=== PATIENT | female | born 1955 | race Caucasian/White ===

== ENCOUNTER 2021-09-25 13:47 | Outpatient (CLI) | payer MEDICARE, OTHER | END 2021-09-25 23:59 | disposition home or self-care (01) | LOC: CARD DIAG 13:47 | PROVIDERS: ATTEND Nurse Practitioner | DX: I08.1 Rheumatic disorders of both mitral and tricuspid valves (principal) | CPT/HCPCS: 93306 ==

== ENCOUNTER → 2023-01-12 | Outpatient (CLI) | payer MEDICARE, OTHER | END | disposition home or self-care (01) | LOC: RAD 12:42 | PROVIDERS: ATTEND Ophthalmology | DX: H35.371 Puckering of macula, right eye (principal); I49.1 Atrial premature depolarization | CPT/HCPCS: 93005 ==